=== PATIENT | male | born 1945 | race Caucasian/White ===

== ENCOUNTER 2018-09-12 11:44 | Emergency (ER) | payer MEDICARE, OTHER ==
[~2018-09-12 11:44] MED LIST: ASPI81TA94 PO; HYDR2TAB74 PO; LOPRESSOR PO; PRILOSEC PO
[2018-09-12] MEDS ORDERED: ATOR40TA69 (11:55)
[2018-09-12] MEDS ORDERED: CAR3.125 (11:55)
[2018-09-12] MEDS ORDERED: CAR3.125 PO (11:55)
--- NOTE | 2018-09-12 11:56 | ER Report ---
History and Physical Time Seen By MD: 11:56 HPI/ROS CHIEF COMPLAINT: Chest pressure HISTORY OF PRESENT ILLNESS: 73-year-old male patient presents to emergency room with complaint of chest pressure. Patient states that he got up this morning, went to work and when he returned home was getting ready to go to [place]. He states that while he was doing that he started having some chest pressure. He patient states that he felt nauseous, was diaphoretic but denies any shortness of breath. Patient states that persisted. He became concerned about possible heart problems. He did go see his primary care provider, they checked some labs which were unremarkable. She felt that with the chest pressure she was unable to rule out an MA. She referred him to the emergency room. Here in the emergency room patient states he is not having any pressure. He states he feels that the left side of his chest is a little bit "puffy" he states that he's not had any pain just pressure. He states that the nausea has stopped as well as being diaphoretic. REVIEW OF SYSTEMS: Respiratory: No cough, no dyspnea. Cardiovascular: As noted above Gastrointestinal: No vomiting, no abdominal pain. Musculoskeletal: No back pain. Allergies: Coded Allergies: acetaminophen (Verified Allergy, Mild, UNKNOWN, 08/17/14) syncope oxycodone (Verified Allergy, Mild, UNKNOWN, 08/17/14) syncope Home Meds Active Scripts Azithromycin 250 Mg Tab (AZITHROMYCIN 250 MG TAB) 250 Mg Tablet, 1 TAB PO QDAY, #6 TAB Take 2 tabs today and then 1 tab a day until gone. Prov:HUSSEIN NÚÑEZ 09/12/18 Reported Medications Carvedilol (CARVEDILOL) 3.125 Mg Tab, 3.125 MG PO BID, TAB 09/12/18 Atorvastatin Calcium (ATORVASTATIN CALCIUM) 40 Mg Tablet, QDAY 09/12/18 Aspirin (ASPIRIN) 81 Mg Tab.chew, 81 MG PO QDAY, TAB.CHEW TAKE 1 TABLET BY MOUTH EVERY DAY 08/17/14 Discontinued Reported Medications Carvedilol (CARVEDILOL) 3.125 Mg Tab, QDAY 09/12/18 Discontinued Scripts Hydromorphone Hcl (DILAUDID) 2 Mg Tablet, 2 MG PO Q4H PRN for PAIN, #20 TAB Prov:LAMONT BROWN MD 08/18/14 Past Medical/Surgical History Patient has a past medical history of hypertension, hyperlipidemia, alcohol use. Patient has surgical history of three-vessel CABG, AVR, left knee surgery, tonsillectomy. Reviewed Nurses Notes: Yes Hx Smoking: No Smoking Status: Never Smoker Hx Substance Use Disorder: No Hx Alcohol Use: Yes Constitutional Vital Sign - Last 24 Hours 09/12/18 09/12/18 09/12/18 09/12/18 11:45 11:55 12:00 12:05 Temp 97.6 Pulse 82 80 Resp 16 B/P (MAP) 164/100 164/100 (121) 169/93 (118) Pulse Ox 91 94 O2 Delivery Room Air 09/12/18 09/12/18 09/12/18 09/12/18 12:15 12:45 12:52 12:57 Pulse 72 74 Resp 13 16 9 B/P (MAP) 147/96 (113) Pulse Ox 93 91 09/12/18 09/12/18 09/12/18 09/12/18 13:12 13:27 13:30 13:42 Pulse 71 72 73 Resp 16 15 9 B/P (MAP) 128/78 (95) Pulse Ox 92 93 90 09/12/18 09/12/18 09/12/18 09/12/18 13:57 14:02 14:17 14:30 Pulse 65 66 72 Resp 13 16 B/P (MAP) 139/90 (106) Pulse Ox 92 93 92 09/12/18 09/12/18 09/12/18 09/12/18 14:32 14:47 14:52 14:57 Pulse 70 69 68 73 Resp 14 19 Pulse Ox 93 91 94 94 09/12/18 09/12/18 15:00 15:05 Pulse 76 Resp 20 B/P (MAP) 136/87 (103) Pulse Ox 95 Physical Exam General Appearance: The patient is alert, has no immediate need for airway protection and no current signs of toxicity. ENT: Tympanic membranes are pearly-gonzalez, auditory canals are patent, mucus mucous membranes are moist. Respiratory: Chest is tender on the left side, lungs are clear to auscultation. Cardiac: regular rate and rhythm Gastrointestinal: Abdomen is soft and non tender, no masses, bowel sounds normal. Musculoskeletal: Neck: Neck is supple and non tender. Extremities have full range of motion and are non tender. Skin: No rashes or lesions. DIFFERENTIAL DIAGNOSIS: After history and physical exam differential diagnosis was considered for chest pain including but not limited to myocardial ischemia, pericarditis pulmonary embolus, chest wall pain, pleural inflammation and pulmonary infectious causes. Medical Decision Making Data Points Laboratory Hematology Test 09/12/18 12:00 09/12/18 14:26 D-Dimer Quantitative (PE/DVT) 0.52 ug/ml (0-0.50) Troponin I < 0.012 ng/ml Chemistry Test 09/12/18 12:00 09/12/18 14:26 D-Dimer Quantitative (PE/DVT) 0.52 ug/ml (0-0.50) Troponin I < 0.012 ng/ml Coagulation Test 09/12/18 12:00 D-Dimer Quantitative (PE/DVT) 0.52 ug/ml EKG/Imaging EKG Interpretation 12 lead EKG: Rhythm: normal sinus rhythm with ventricular rate of 74 bpm Dupont: normal QRS: Right bundle branch block ST segments: normal Imaging EXAMINATION: CTA Chest With Contrast 09/12/2018 12:39 PM HISTORY: Dizziness. Shortness of breath. Not feeling well. Elevated d-dimer. TECHNIQUE: Pulmonary embolus protocol - Thin-slice axial imaging of the chest was performed during maximal pulmonary arterial opacification with intravenous nonionic iodinated contrast. 3D slab MIPs and 2D reconstructions in the coronal and sagittal planes were performed. Dry Transfer Worker images have been stored on PACS. Contrast: 75 mL of IV Isovue 370. One of the following dose optimization techniques was utilized in the performance of this exam: Automated exposure control; adjustment of the mA and/or kV according to the patient's size; or use of an iterative reconstruction technique. Specific details can be referenced in the facility's radiology CT exam operational policy. COMPARISON STUDIES: Chest x-ray today. FINDINGS: Angiographic Findings: Pulmonary arteries: There are no filling defects in the main, right, left, lobar, segmental or visualized sub-segmental branches of the pulmonary arterial system Other vasculature: Atherosclerosis includes coronary disease with previous CABG. Additional non-angiographic findings: Lungs / pleura: Curvilinear density in the posterior left base. Mediastinum / naomy: negative Heart / pericardium: AVR. Musculoskeletal / Body wall: Sternotomy is intact. Mild degenerative spurring along the spine. Lymph node assessment: negative Lower neck: negative Upper abdomen: Incidental anteromedial accessory splenule. IMPRESSION: 1. Negative CTA assessment for PE. 2. Curvilinear posterior left basilar density is more likely atelectasis or scarring than acute infiltrate. 3. Previous CABG and AVR. Report Dictated By: Maikel Oshea MD at 09/12/2018 1:33 PM Report E-Signed By: Maikel Oshea MD at 09/12/2018 1:42 PM EXAMINATION: CTA Chest With Contrast 09/12/2018 12:39 PM HISTORY: Dizziness. Shortness of breath. Not feeling well. Elevated d-dimer. TECHNIQUE: Pulmonary embolus protocol - Thin-slice axial imaging of the chest was performed during maximal pulmonary arterial opacification with intravenous nonionic iodinated contrast. 3D slab MIPs and 2D reconstructions in the coronal and sagittal planes were performed. Dry Transfer Worker images have been stored on PACS. Contrast: 75 mL of IV Isovue 370. One of the following dose optimization techniques was utilized in the performance of this exam: Automated exposure control; adjustment of the mA and/or kV according to the patient's size; or use of an iterative reconstruction technique. Specific details can be referenced in the facility's radiology CT exam operational policy. COMPARISON STUDIES: Chest x-ray today. FINDINGS: Angiographic Findings: Pulmonary arteries: There are no filling defects in the main, right, left, lobar, segmental or visualized sub-segmental branches of the pulmonary arterial system Other vasculature: Atherosclerosis includes coronary disease with previous CABG. Additional non-angiographic findings: Lungs / pleura: Curvilinear density in the posterior left base. Mediastinum / naomy: negative Heart / pericardium: AVR. Musculoskeletal / Body wall: Sternotomy is intact. Mild degenerative spurring along the spine. Lymph node assessment: negative Lower neck: negative Upper abdomen: Incidental anteromedial accessory splenule. IMPRESSION: 1. Negative CTA assessment for PE. 2. Curvilinear posterior left basilar density is more likely atelectasis or scarring than acute infiltrate. 3. Previous CABG and AVR. Report Dictated By: Maikel Oshea MD at 09/12/2018 1:33 PM Report E-Signed By: Maikel Oshea MD at 09/12/2018 1:42 PM ED Course/Re-evaluation ED Course Patient was admitted to exam room, history and physical were obtained. Differential diagnoses were considered. On examination lungs are clear, heart is regular, patient does have some tenderness to the left side of the chest. An IV was started, since patient had had lab work done at his primary care provider's office I did not do a CBC or CMP. I did do a d-dimer as well as a troponin. Troponin was negative, d-dimer was slightly elevated at 0.52. A CT scan of the chest was done. It did show some thickening in the left lower lobe consistent with atelectasis or scarring which is favored over a pneumonia. I did review the images and did have some thickening in the left lower lobe. However with the patient having chest pain as well as elevated white count I do believe that it is a pneumonia. I did discuss the case with Dr. Shaikh, jumpbasting lining baster at [facility], who recommended getting a repeat troponin, increasing the carvedilol to 6.25 mg a day. He'll start been following up. If the repeat troponin was negative we will go ahead and treat as a pneumonia. I felt was the underlying cause. Repeat troponin was done which was negative. I discussed the results with the patient and his . We will go ahead and discharge patient home at this time. Patient will be treated with azithromycin. He is to follow-up with his jumpbasting lining baster Dr. Barrios. As I was discussing the recommendations by Dr. Shaikh. I was informed the patient has been taking his carvedilol twice a day, we will go ahead and have him continue with his current dose of 3.125 mg twice a day. Patient verbalized understanding and agreement with plan. Decision to Disposition Date: Sep 12, 2018 Decision to Disposition Time: 14:56 Depart Departure Latest Vital Signs Vital Signs Date Time Temp Pulse Resp B/P (MAP) Pulse Ox O2 Delivery O2 Flow Rate FiO2 09/12/18 15:05 76 20 95 09/12/18 15:00 136/87 (103) 09/12/18 11:45 97.6 Room Air Impression: Primary Impression: Chest pain Additional Impression: Pneumonia Condition: Improved Disposition: HOME OR SELF-CARE New Scripts Azithromycin 250 Mg Tab (AZITHROMYCIN 250 MG TAB) 250 Mg Tablet 1 TAB PO QDAY, #6 TAB Take 2 tabs today and then 1 tab a day until gone. Prov: HUSSEIN NÚÑEZ CHANGE ROOM ATTENDANT 09/12/18 Patient Instructions: Community Acquired Pneumonia (ED) Additional Instructions: Increase fluid intake. Get plenty of rest. Follow up with your jumpbasting lining baster in the next week. Return to the ER if condition worsens. Take medication as directed except for the Carvedilol. Problem Qualifiers Primary Impression: Chest pain Chest pain type: other chest pain Qualified Codes: R07.89 - Other chest pain Additional Impression: Pneumonia Pneumonia type: due to unspecified organism Laterality: left Lung location: lower lobe of lung Qualified Codes: J18.1 - Lobar pneumonia, unspecified organism HUSSEIN NÚÑEZ Sep 12, 2018 11:56
[2018-09-12] MEDS ORDERED: ASPIRIN 81 MG CHEW PO ONE (12:15)
[2018-09-12] MEDS ORDERED: IOPAMIDOL 76% 75 ML INFUS BTL 75 ML ONE (12:53)
[2018-09-12] MEDS ORDERED: NS(*) 0.9% 50 ML BAG 50 ML ONE (12:53)
--- NOTE | 2018-09-12 13:10 | EKG ---
FACILITY: [facility] PATIENT NAME: LEIGH LIRA : [id number] MR: [id number] V: [id number] EXAM DATE: ORDERING PHYSICIAN: HUSSEIN NÚÑEZ TECHNOLOGIST: TOD Rizo Reason : CHEST PRESSURE Blood Pressure : / mmHG Vent. Rate : 074 BPM Atrial Rate : 074 BPM P-R Int : 194 ms QRS Dur : 142 ms QT Int : 420 ms P-R-T Axes : 063 270 010 degrees QTc Int : 466 ms Normal sinus rhythm Right bundle branch block Abnormal ECG When compared with ECG of 30-JUN-2017 10:11, premature atrial complexes are no longer present Nonspecific T wave abnormality has replaced inverted T waves in Inferior leads Confirmed by Jairon Thomas ([id number]) on 09/12/2018 8:45:14 PM Referred By: NIYA Confirmed By:Jairon Griffith
--- NOTE | 2018-09-12 13:17 | RADIOLOGY IMAGING REPORT ---
[place] [facility] [place] NAME: Maikel Hodge : 1945 MR: [id number] V: [id number] EXAM DATE: ORDERING PHYSICIAN: HUSSEIN NÚÑEZ TECHNOLOGIST: Location: [facility] - [place] Patient: Maikel Hodge : 1945 Visit/Account:[id number] Date of Sevice: 09/12/2018 CHEST PA AND LAT Indication: Chest Pain Comparison: Chest x-ray 06/30/2017. Findings: Lungs: Clear. Mediastinum/pulmonary vasculature: Heart size is normal. There are postoperative changes from aortic valve replacement. Bones/soft tissues: Normal. IMPRESSION: Clear lungs. Report Dictated By: Maikel Smith at 09/12/2018 1:11 PM Report E-Signed By: Maikel Smith at 09/12/2018 1:12 PM WSN:[id number]
--- NOTE | 2018-09-12 13:47 | RADIOLOGY IMAGING REPORT ---
FACILITY: [facility] PATIENT NAME: Maikel Hodge : 1945 MR: [id number] V: [id number] EXAM DATE: ORDERING PHYSICIAN: HUSSEIN NÚÑEZ TECHNOLOGIST: Location: [facility] - [place], [place] Patient: Maikel Hodge : 1945 Visit/Account:[id number] Date of Sevice: 09/12/2018 EXAMINATION: CTA Chest With Contrast 09/12/2018 12:39 PM HISTORY: Dizziness. Shortness of breath. Not feeling well. Elevated d-dimer. TECHNIQUE: Pulmonary embolus protocol - Thin-slice axial imaging of the chest was performed during maximal pulmonary arterial opacification with intravenous nonionic iodinated contrast. 3D slab MIPs a nd 2D reconstructions in the coronal and sagittal planes were performed. Side Splitter images have b een stored on PACS. Contrast: 75 mL of IV Isovue 370. One of the following dose optimization techniques was utilized in the performance of this exam: Autom ated exposure control; adjustment of the mA and/or kV according to the patient's size; or use of an i terative reconstruction technique. Specific details can be referenced in the facility's radiology C T exam operational policy. COMPARISON STUDIES: Chest x-ray today. FINDINGS: Angiographic Findings: Pulmonary arteries: There are no filling defects in the main, right, left, lobar, segmental or visual ized sub-segmental branches of the pulmonary arterial system Other vasculature: Atherosclerosis includes coronary disease with previous CABG. Additional non-angiographic findings: Lungs / pleura: Curvilinear density in the posterior left base. Mediastinum / naomy: negative Heart / pericardium: AVR. Musculoskeletal / Body wall: Sternotomy is intact. Mild degenerative spurring along the spine. Lymph node assessment: negative Lower neck: negative Upper abdomen: Incidental anteromedial accessory splenule. IMPRESSION: 1. Negative CTA assessment for PE. 2. Curvilinear posterior left basilar density is more likely atelectasis or scarring than acute infi ltrate. 3. Previous CABG and AVR. Report Dictated By: Maikel Oshea MD at 09/12/2018 1:33 PM Report E-Signed By: Maikel Oshea MD at 09/12/2018 1:42 PM WSN:[email or web address]
[2018-09-12] MEDS ORDERED: AZIT-18 PO (14:57)
[2018-09-12 15:00] VITALS: BP 136/87
== END 2018-09-12 15:12 | disposition home or self-care (01) ==
LOC: ER 12:31
DX: J18.1 Lobar pneumonia, unspecified organism (principal); R07.89 Other chest pain
CPT/HCPCS: 36415; 71046; 71275; 84484; 85379; 93005; 99284; A9270; J7050; Q9967

== ENCOUNTER → 2019-03-09 | Outpatient (CLI) | payer MEDICARE, OTHER ==
[~2019-03-09] MED LIST changes: +ATOR40TA69; +AZIT-18 PO; +CAR3.125; +CAR3.125 PO
--- NOTE | 2019-03-10 14:53 | RADIOLOGY IMAGING REPORT ---
FACILITY: [facility] - [place] PATIENT NAME: Maikel Hodge : 1945 MR: [id number] V: [id number] EXAM DATE: ORDERING PHYSICIAN: PIERRE ALVARADO TECHNOLOGIST: Location: [facility] Patient: Maikel Hodge : 1945 Visit/Account:[id number] Date of Sevice: 03/09/2019 Exam type: ARTERIAL BILAT LOWER EXT History: Claudication Comparison: None. Findings: There is triphasic flow in the right common femoral artery, superficial femoral artery popliteal koffi ry mid right posterior tibial artery. There is biphasic flow in the distal right posterior tibial ar gigi, peroneal artery anterior tibial artery and dorsalis pedis artery. The peak systolic velocities in the right lower extremity measured in centimeters per second are as follows PESTICIDE USE MEDICAL COORDINATOR: 107 Profunda femoral artery: 68.3 SFA proximal: 71.4 SFA mid: 90.7 SFA distal: 62.7 Popliteal proximal: 72.1 Popliteal distal: 54 Peroneal artery: 39.8 Posterior tibial artery: 74 Anterior tibial artery: 29 Dorsalis pedis artery 39 There is triphasic flow in the left common femoral artery, left superficial femoral artery, left popl iteal artery and biphasic flow in the left posterior tibial artery, anterior tibial artery peroneal a rtery and dorsalis pedis artery. The peak systolic velocities in the left lower extremity arteries m easured in centimeters per second are as follows PESTICIDE USE MEDICAL COORDINATOR: 114 Profunda femoral artery: 72.9 SFA proximal: 93.3 SFA mid: 79.2 SFA distal: 76 Popliteal proximal: 50.5 Popliteal distal: 57.2 Peroneal artery: 52.8 Posterior tibial artery: 67 Anterior tibial artery: 64.6 Dorsalis pedis artery 57.4. IMPRESSION: There is triphasic flow seen to the popliteal arteries bilaterally with biphasic flow in the calves a s described above. Peak systolic velocities are as recorded above. 1. Report Dictated By: Alia Bass MD at 03/09/2019 4:42 PM Report E-Signed By: Alia Bass MD at 03/09/2019 4:52 PM WSN:[id number]
== END ==
LOC: US 06:46
PROVIDERS: ATTEND Internal Medicine
DX: I73.9 Peripheral vascular disease, unspecified (principal)
CPT/HCPCS: 93925